=== PATIENT | female | born 1995 | race Caucasian/White ===

== ENCOUNTER 2020-07-09 09:45 | Inpatient (IN) | payer BC, SELFPAY ==
[2020-07-09] VITALS (138 sets, daily range): BP systolic 100–166; BP diastolic 48–142; PULSE 55–175; TEMP 36.3–37.2; O2SAT 84–100; BMI 39.8
--- NOTE | 2020-07-09 10:26 | LDADM ---
This patient, John Meyers, was admitted to Labor/Delivery/Recovery 107 on 07/09/20 at 09:45. Plans for labor, pain management and were discussed with patient. Patient/family oriented to hospital policies and general routines including ID bracelet, bed and alarms, visiting hours, pain management, procedures, bathroom and other care routines, personal items, smoking policy, room service/diet and guest tray routines, infant security routines, and visiting hours. Patient/Family are encouraged to report perceived risks to care and to ask questions if they do not understand what they are told or what they should do. See OBIX for further documentation.
[2020-07-09] MEDS: AMPICILLIN 2 GM/NS 100 ML 2 GM/100 ML BAG IVPB (10:36)
[2020-07-09] MEDS: LACTATED RINGERS 1,000 ML 125 ML IV CONT ×2 (10:36→19:35)
[2020-07-09 10:54] LABS: Basophils Percent Auto 0.4 % (0.2-1.2); Eosinophils Absolute Auto 0.1 K/mm3 (0-0.3); Eosinophils Percent Auto 0.6 % (0-4.4); Hematocrit 38.6 % (37.0-47.0); Hemoglobin 13.1 g/dL (12.0-15.0); Immature Granulocyte Absolute 0.09 K/mm3 (0.00-0.031); Immature Granulocyte Percent A 0.8 % (0-0.5); Lymphocytes Absolute Auto 2.58 K/mm3 (0.9-3.2); Lymphocytes Percent Auto 24.1 % (18.3-44.2); Mean Corpuscular HGB Conc 33.9 g/dl (32-36); Mean Corpuscular Volume 88.5 fl (80-100); Mean Platelet Volume 11.4 fl (7.4-10.4); Monocytes Absolute Auto 0.7 K/mm3 (0.1-0.6); Monocytes Percent Auto 6.5 % (2.6-8.5); Neutrophils Absolute Auto 7.3 K/mm3 (1.3-6.7); Neutrophils Percent Auto 67.6 % (45.5-73.1); Platelet Count Result 169 k/mm3 (150-375); Red Blood Count 4.36 M/mm3 (4.2-5.4); Red Cell Distribution Width 13.5 % (11.5-14.5); White Blood Count 10.7 K/mm3 (4.5-10.0)
[2020-07-09 11:06] LABS: Alanine Aminotransferase 22 U/L (4-35); Albumin Level 3.6 g/dL (3.5-5.1); Alkaline Phosphatase 168 U/L (38-126); Anion Gap 6 mmol/L (8-16); Aspartate Amino Transferase 20 U/L (14-36); Bilirubin,Total 0.4 mg/dL (0.2-1.3); Blood Urea Nitrogen 8 mg/dL (7-17); Calcium 9.1 mg/dL (8.4-10.2); Carbon Dioxide 20 mmol/L (22-30); Chloride 109 mmol/L (98-107); Estimated CRCL calculation 182 ml/min; Estimated Glomerular Filt Rate > 60; Glucose 103 mg/dL (65-105); Potassium 3.9 mmol/L (3.4-5.0); Sodium 135 mmol/L (137-145)
[2020-07-09 11:11] LABS: Uric Acid 4.3 mg/dL (2.5-7.5)
[2020-07-09] MEDS: OXYTOCIN 30 UNITS/NS 500 ML 30 UNITS/500 ML BAG IV CONT (14:15)
[2020-07-09] MEDS: AMPICILLIN 1 GM/NS 50 ML 1 GM/50 ML BAG IVPB ×2 (16:55→21:14)
--- NOTE | 2020-07-09 18:32 | WPDANESEPPF ---
Anes - Initial Pre Proc Eval Procedure: labor epidural Date/Time: 07/09/20 18:32 Surgeon: Natalie Heredia MD Pre Op Diagnosis: labor pain Pre Op Diagnosis: Leaking Fluid Patient Data Age: 24 Gender: F Height: 1.68 m Weight: 112 kg Last Vital Signs Temp 36.6 C 07/09/20 18:00 Pulse 89 07/09/20 18:16 BP 127/82 07/09/20 18:16 Pulse Ox 100 07/09/20 18:30 Allergies Allergy/AdvReac Type Severity Reaction Status Date / Time NKDA Allergy Unknown Unknown Uncoded 06/30/20 13:15 Home Medications Medication Instructions Recorded Confirmed Type PNV no.[id number] acid 1 tablet PO DAILY 06/30/20 07/09/20 History [Complete ] Laboratory Tests 07/09/20 07/09/20 07/09/20 10:41 10:41 10:41 WBC 10.7 K/mm3 H K/mm3 (4.5-10.0) RBC 4.36 M/mm3 M/mm3 (4.2-5.4) Hgb 13.1 g/dL g/dL (12.0-15.0) Hct 38.6 % % (37.0-47.0) MCV 88.5 fl fl (80-100) MCH 30.0 pg pg (26-34) MCHC 33.9 g/dl g/dl (32-36) RDW 13.5 % % (11.5-14.5) Plt Count 169 k/mm3 k/mm3 (150-375) MPV 11.4 fl H fl (7.4-10.4) Immature Gran % (Auto) 0.8 % H % (0-0.5) Neut % (Auto) 67.6 % % (45.5-73.1) Lymph % (Auto) 24.1 % % (18.3-44.2) [place] % (Auto) 6.5 % % (2.6-8.5) Eos % (Auto) 0.6 % % (0-4.4) Baso % (Auto) 0.4 % % (0.2-1.2) Lymph # (Auto) 2.58 K/mm3 K/mm3 (0.9-3.2) [place] # (Auto) 0.7 K/mm3 H K/mm3 (0.1-0.6) Eos # (Auto) 0.1 K/mm3 K/mm3 (0-0.3) Baso # (Auto) 0.0 K/mm3 K/mm3 (0.0-0.1) Abs Immat Gran (auto) 0.09 K/mm3 H K/mm3 (0.00-0.031) Absolute Neuts (auto) 7.3 K/mm3 H K/mm3 (1.3-6.7) Absolute Nucleated RBC 0.0 K/mm3 K/mm3 (0.0-0.012) Nucleated RBC % 0.0 % % (0.0-0.2) Sodium Potassium Chloride Carbon Dioxide Anion Gap BUN Creatinine Estim Creat Clear Calc Estimated GFR Glucose Uric Acid 4.3 mg/dL mg/dL (2.5-7.5) Calcium Total Bilirubin AST ALT Alkaline Phosphatase Total Protein Albumin RPR Pending Blood Type Antibody Screen 07/09/20 07/09/20 10:41 10:41 WBC RBC Hgb Hct MCV MCH MCHC RDW Plt Count MPV Immature Gran % (Auto) Neut % (Auto) Lymph % (Auto) [place] % (Auto) Eos % (Auto) Baso % (Auto) Lymph # (Auto) [place] # (Auto) Eos # (Auto) Baso # (Auto) Abs Immat Gran (auto) Absolute Neuts (auto) Absolute Nucleated RBC Nucleated RBC % Sodium 135 mmol/L L mmol/L (137-145) Potassium 3.9 mmol/L mmol/L (3.4-5.0) Chloride 109 mmol/L H mmol/L (98-107) Carbon Dioxide 20 mmol/L L mmol/L (22-30) Anion Gap 6 mmol/L L mmol/L (8-16) BUN 8 mg/dL mg/dL (7-17) Creatinine 0.50 mg/dL L mg/dL (0.7-1.0) Estim Creat Clear Calc 182 ml/min ml/min Estimated GFR > 60 (59 - ) Glucose 103 mg/dL mg/dL (65-105) Uric Acid Calcium 9.1 mg/dL mg/dL (8.4-10.2) Total Bilirubin 0.4 mg/dL mg/dL (0.2-1.3) AST 20 U/L U/L (14-36) ALT 22 U/L U/L (4-35) Alkaline Phosphatase 168 U/L H U/L (38-126) Total Protein 7.0 g/dL g/dL (6.3-8.2) Albumin 3.6 g/dL g/dL (3.5-5.1) RPR Blood Type A Positive Antibody Screen Negative Patient hx anesthesia problems: none Family hx anesthesia problems: none PMFSH Social History Social History (Updated 0
[2020-07-10] VITALS (129 sets, daily range): BP systolic 93–149; BP diastolic 35–100; PULSE 85–170; RESP 16; TEMP 36.7–37.9; O2SAT 83–100
[2020-07-10] MEDS: AMPICILLIN 1 GM/NS 50 ML 1 GM/50 ML BAG IVPB (01:01)
[2020-07-10] MEDS: LACTATED RINGERS 1,000 ML 125 ML IV CONT ×2 (01:05→02:14)
[2020-07-10] MEDS: ONDANSETRON INJ 4 MG/2 ML VIAL IV PUSH (01:32)
--- NOTE | 2020-07-10 05:58 | P.PCNOB_ITS ---
OB - Delivery Note Procedure Delivery date: 07/10/20 Procedure: History of 2vc. Admitted with SROM. Intrapartal events: None Induction method: none Delivery augmentation: pitocin Delivery monitor: external FHT, external uterine and internal FHT Route of delivery: Episiotomy description: None Laceration Description: None Quantitative Blood Loss (ml): 172 Anesthesia type: Epidural [place] Baby Date of : 07/10/20 Time of : 05:42 Weeks of gestation at delivery: 39 Weight (pounds): 8 Weight (ounces): 1 presentation: vertex position: Right Occiput Anterior Placenta delivery description: Spontaneous cord vessel description: Delayed Cord Clamping score one minute: 8 score five minutes: 9 Narrative: Compound delivery with hand at face/neck. Mother and baby in stable condition. Cord gasses collected and handed off to staff.
--- NOTE | 2020-07-10 06:01 | WPDOBADMIT ---
Obstetrics - Admit Note Admission Note: Pt sent over from office with SROM. record reviewed. No pertinent additions to the history and/or any subsequent changes in the physical findings that are not consistent with the expected course of the were found. Additions to the history and/or subsequent changes in the physical findings follow. None.
[2020-07-10] MEDS: OXYTOCIN 30 UNITS/NS 500 ML 30 UNITS/500 ML BAG 125 UNITS IV CONT (06:17)
[2020-07-10] MEDS: IBUPROFEN 600 MG TABLET PO ×2 (07:58→17:35)
[2020-07-10] MEDS: BENZOCAINE 20% AER SPR (*SP) 56 GM CAN 1 SPRAY TOPICAL (07:59)
[2020-07-10] MEDS: WITCH HAZEL 40 PADS 1 PAD TOPICAL (07:59)
--- NOTE | 2020-07-10 08:35 | PC.NURSE ---
Patient transferred to post room #0835 via stretcher. Support person present. Oriented to unit, room, information board, rooming in, admission packet and security measures. Patient verbalizes understanding.
[2020-07-10 09:10] LABS: Rapid Plasma Reagin Non-Reactive (NonReactive)
[2020-07-10] MEDS: MULTIVIT/MIN/PREN/FOL AC/IRON TABLET 1 TAB PO (09:25)
[2020-07-10] MEDS: ACETAMINOPHEN 325 MG TABLET 650 MG PO (09:25)
[2020-07-10] MEDS: TETANUS,DIPHTHERIA,AC PERTUSSIS ADULT (0.5 ML) BOOSTRIX IM (17:35)
[2020-07-11] MEDS: DOCUSATE SODIUM 100 MG CAPSULE PO ×2 (02:41→15:12)
[2020-07-11] MEDS: IBUPROFEN 600 MG TABLET PO ×3 (02:41→23:15)
[2020-07-11 05:57] LABS: Hematocrit 30.8 % (37.0-47.0); Hemoglobin 10.1 g/dL (12.0-15.0)
[2020-07-11] MEDS: MULTIVIT/MIN/PREN/FOL AC/IRON TABLET 1 TAB PO (07:25)
--- NOTE | 2020-07-11 07:28 | WPDANLDPN2 ---
Anes-Prog Note L&D Date/Time: 07/11/20 07:28 Comfortable throughout: labor and delivery Neuraxial method: epidural Epidural/Spinal procedure site: clean & non-tender Neuro status: Neuro function grossly intact. Cardiovascular status: normal Respiratory status: normal Airway patency: baseline Mental status: baseline Post-Op hydration status: normal Vital Signs: Last Vital Signs Temp 36.7 C 07/10/20 19:40 Pulse 95 07/10/20 19:40 Resp 16 07/10/20 19:40 BP 109/71 07/10/20 19:40 Pulse Ox 99 07/10/20 19:40 Pain score (VAS): 0/10. Patient resting in bed at time of assessment, appears comfortable. Support person at bedside. I/O: Intake & Output 07/10/20 07/10/20 07/11/20 15:59 23:59 07:59 Output Total 89 Balance -89 Post-procedural complaints: none Patient feedback: Patient satisfied with anesthetic care.
--- NOTE | 2020-07-11 07:48 | PM.OBPNVD ---
OB - PN: Subj Subjective Date/time seen: 07/11/20 07:48 Patient comments: no complaints baby status: doing well [place] feeding status: exclusively breast feeding OB - PN: Obj Data Labs CBC & Chem 7: 07/11/20 03:58 07/09/20 10:41 Labs: Laboratory Results - last 24 hr 07/09/20 07/11/20 10:41 03:58 Hgb 10.1 L D Hct 30.8 L RPR Non-reactive OB - PN A/P Plan day: 1 Plan: routine care and discharge home Time Spent With Patient Time: Total time spent is greater than 50% in coordination of care (as documented) at patient's floor/unit and/or counseling patient: Review of Systems Review of Systems: All systems reviewed & are unremarkable except as noted in HPI and below Exam Const: General: cooperative Nutritional Appearance: average body habitus Orientation/consciousness: patient oriented x3 Limitations: no limitations
--- NOTE | 2020-07-11 07:49 | P.DS_ITS ---
DS: Admitting Diagnosis Admitting Diagnosis Admitting Diagnosis: labor OB - DS: Summary OB Procedures : None OB Procedures Intrapartum: Spontaneous Vag Delivery OB Procedures: : None Time Spent with Patient Time attestation: Total time spent providing and/or coordinating discharge services: DS: Data Data Completed and Pending Pending studies at discharge: Pending at discharge 07/10/20 05:51 Surgical [PTH] Routine Labs on day of discharge: Labs from last 24 hours 07/11/20 07/09/20 03:58 10:41 Hgb 10.1 L D Hct 30.8 L RPR Non-reactive Discharge Plan Discharge Attending physician on discharge: Natalie Heredia Discharging Clinician: Nika Klein Patient Disposition: Home, Self-Care Activity: pelvic rest Diet: regular Patient Instructions: Antibiotic Form Stand Alone Forms: General Discharge Information Follow-up/Referrals: Lydia Mckeon CNM [Certified Nurse Maintenance Repairer] - 4 Weeks Discharge Medications: Continued Complete 30-975 mg-mcg Tablet 1 tablet PO DAILY RF: 0 Date of admission: 07/09/20 09:45 Primary Care Provider: [facility] Admitting Provider: Natalie Heredia Attending physician on admission: Natalie Heredia Condition: Stable
[2020-07-11 09:00] VITALS: BP 122/79; PULSE 92; RESP 18; TEMP 35.9
[2020-07-11 19:07] VITALS: BP 129/76; PULSE 93; RESP 16; TEMP 36.6
[2020-07-12 08:15] VITALS: BP 115/77; PULSE 97; RESP 18; TEMP 36.7; O2SAT 100
[2020-07-12] MEDS: IBUPROFEN 600 MG TABLET PO (09:06)
[2020-07-12] MEDS: MULTIVIT/MIN/PREN/FOL AC/IRON TABLET 1 TAB PO (09:06)
--- NOTE | 2020-07-12 09:35 | PC.NURSE ---
Patient viewed the discharge video Mother & Baby Care, The First Two Weeks . Patient was given the opportunity and encouraged to ask questions. Patient verbalized understanding of information shared and has been given the mother/baby guide for home reference.
--- NOTE | 2020-07-12 11:06 | P.PNOB_ITS ---
OB - PN: Subj Subjective Date/time seen: 07/12/20 11:06 Patient comments: no complaints, pain well controlled and tolerating diet OB - PN: Obj Data Labs CBC & Chem 7: 07/11/20 03:58 07/09/20 10:41 OB - PN A/P Plan day: 2 Plan: routine care and discharge home Time Spent With Patient Time: Total time spent is greater than 50% in coordination of care (as docume nted) at patient's floor/unit and/or counseling patient: Exam Const: General: comfortable and no acute distress Resp: Effort & Inspection: normal respiratory effort Auscultation: no rales, no rhonchi and no wheezes Cardio: Rate: regular rate Heart sounds: no click, no murmurs and no rubs GI: GI Palp: Yes Soft to palpation and No Tenderness to palpation present (GI) Auscultation: normal bowel sounds Extrem: General: normal to inspection, no pedal edema and no calf tenderness
[2020-07-14 10:06] VITALS: BP 123/81; PULSE 94; RESP 18; TEMP 37.2; O2SAT 99
--- NOTE | 2020-07-16 07:30 | PM.OBDSVD ---
DS: Admitting Diagnosis Admitting Diagnosis Admitting Diagnosis: labor OB - DS: Summary OB Procedures : None OB Procedures Intrapartum: Spontaneous Vag Delivery OB Procedures: : None Time Spent with Patient Time attestation: Total time spent providing and/or coordinating discharge services: DS: Data Data Completed and Pending Completed studies during hospitalization: Pending at discharge 07/10/20 05:51 Surgical [PTH] Routine Discharge Plan Discharge Attending physician on discharge: Natalie Heredia Consulting providers: Lydia Mckeon ; Nika Klein ; Rafael Martinez Discharging Clinician: Nika Klein Patient Disposition: Home, Self-Care Activity: pelvic rest Diet: regular Discharge Instructions: Education: Mom and Baby Guide Given to: Mother Follow-Up: Call your delivering provider's office for an appointment to be seen in: 4 Weeks Mom and baby [facility] for the follow-up appointment. Appointment Date/Time: July 14, 2020 at 10:00 am What to expect at your follow-up visit: Physical Assessment Call [phone] if you are unable to keep your appointment time. BREAST CARE: * Wear a snug supportive bra. * For engorgement discomfort: Breast Feeding: * Apply warm moist washcloths * Express milk as needed to relieve engorgement * Wear loose clothing * For sore nipples: * Identify correct latch-on * Apply warm moist washcloths before and after nursing * Air dry nipples after nursing * May apply Lansinoh cream to nipples EPISIOTOMY/PERINEAL CARE: * Until bleeding stops, use your louie bottle after urinating * Change your pad frequently throughout the day * You may take sitz baths several times a day (fill your bathtub with warm water and soak for 20 minutes.) Do NOT bathe in the water * No tub baths until seen by your physician - You may shower ACTIVITY: * Rest as much as possible. * Do not exercise or lift anything heavier than your baby (such as laundry or other children.) * Avoid stairs or driving as much as possible. * Do not put anything into the vagina. No douching, tampons, or sexual activity until seen by physician. NOTIFY PHYSICIAN IF YOU HAVE ANY QUESTIONS OR IF ANY OF THE FOLLOWING SYMPTOMS OCCUR: * If your episiotomy or incision becomes red, swollen, or more painful than what you have experienced in the hospital. * If your vaginal bleeding becomes foul smelling. * If your vaginal bleeding becomes more heavy than a period or if your bleeding changes from pink to bright red. However, you may pass an occasional walnut-sized clot once or twice for the first week . * If you experience a sharp, shooting pain in you calves. * If you discover a hard, reddened area on your breast or if you experience flu-like symptoms. DIET: * Eat regular, well-balanced meals. * Drink plenty of fluids daily. If , drink to thirst. Stand Alone Forms: General Discharge Information Follow-up/Referrals: Lydia Mckeon CNM [Certified Nurse Meter Tester Primary] - 4 Weeks Discharge Medications: Continued PNV no.[id number] acid 30-975 mg-mcg Tablet 1 tablet PO DAILY RF: 0 Date of admission: 07/09/20 09:45 Primary Care Provider: Price[facility] Admitting Provider: Natalie Heredia Attending physician on admission: Natalie Heredia Condition: Stable
== END 2020-07-12 11:20 | disposition home or self-care (01) | DRG 807 ==
LOC: ANHLDR 10:08 → ANHOB2 07-10 08:39
PROVIDERS: Advanced Practice Midwife; Admitting Provider Obstetrics & Gynecology; PCP Family Medicine; Visit Provider Obstetrics & Gynecology
DX: O99.824 Streptococcus B carrier state complicating childbirth (principal); Z37.0 Single live birth; Z3A.39 39 weeks gestation of pregnancy; Z23 Encounter for immunization; O99.214 Obesity complicating childbirth; E66.9 Obesity, unspecified; O32.6XX0 Maternal care for compound presentation, not applicable or unspecified
CPT/HCPCS: 36415; 80053; 84112; 84550; 85014; 85018; 85025; 86592; 86850; 86900; 86901; 88307; 90471; 90653; 90715; A9270; G0008; J0290; J2405; J2590; J2795; J7120